=== PATIENT | male | born 1965 | race African-American/Black ===

== ENCOUNTER 2020-03-02 09:14 | Outpatient (CLI) | payer OTHER ==
[2020-03-02] VITALS (14 sets, daily range): BP systolic 126–147; BP diastolic 87–100; PULSE 82–101
[~2020-03-02] VITALS: Ht 182.9 cm; Wt 111.0 kg
[~2020-03-02 09:14] MED LIST: CRESTOR 10MG10 MG PO; FLOMAX 0.40.4 MG/CAP PO; GLUCOPHAGE1000 MG PO; NORVASC 10MG10 MG PO; PRINZIDE 25 MG-1 TAB PO; TOPROL XL 50MG50 MG PO; VITAMIN D 50,1.25 MG PO
--- NOTE | 2020-03-02 09:45 | NUR ---
Pt transported to ct per ambulation. Pt placed in prone position on ct table. Monitors applied to pt. O2 on at 2l/nc.
--- NOTE | 2020-03-02 09:55 | NUR ---
Dr Araiza into ct room and talking with pt.
--- NOTE | 2020-03-02 10:09 | NUR ---
Specimen obtained and placed in foramlin by Dr Araiza, specimen labeled.
--- NOTE | 2020-03-02 13:10 | NUR ---
Dr Araiza called, chest x-ray OK, pt may be discharged, Int d'cd intact. Pt up in room and dressed, waits for ride. Pt discharged at 1330 amb. to lobby/car
== END 2020-03-02 13:36 | disposition home or self-care (01) ==
LOC: COL.RAD 09:14
DX: R91.8 Other nonspecific abnormal finding of lung field (principal); M89.8X8 Other specified disorders of bone, other site
CPT/HCPCS: 32107

== ENCOUNTER 2020-09-12 17:47 | Emergency (ER) | payer OTHER ==
[~2020-09-12] VITALS: Ht 182.9 cm; Wt 115.9 kg
[2020-09-12 17:57] VITALS: BP 137/80; TEMP 97.7
[2020-09-12 18:49] LABS: BASO % 0.5 % (0.0-2.0); EOS % 12.2 % (0-4.0); GRAN # 3.5 (1.4-6.5); GRAN % 42.1 % (42.2-75.2); HEMOGLOBIN 11.3 g/dl (13.5-18.0); LYMPH # 2.6 (1.2-3.4); LYMPH % 31.9 % (20.0-51.0); MEAN CELL VOLUME 86 fl (80.0-100.0); MEAN CORPUSCULAR HEMOGLOBIN 28 pg (27.0-31.0); MEAN CORPUSCULAR HGB CONC 32 g/dl (33.0-37.0); MEAN PLATELET VOLUME 9.2 fl (7.4-10.4); MONO # 1.1 (0.1-0.6); MONO % 12.9 % (1.7-9.3); PLATELET COUNT 274 K/mm3 (130-400); RED BLOOD COUNT 4.11 M/mm3 (4.20-5.60); REDCELL DISTRIBUTION WIDTH-CV 12.6 % (11.5-14.5)
[2020-09-12 18:50] LABS: HEMATOCRIT 35.2 % (42.0-52.0)
[2020-09-12 19:00] LABS: ALBUMIN 4.7 gm/dL (3.5-5.0); BILIRUBIN,TOTAL 0.4 mg/dL (0.0-1.0); CALCIUM 9.5 mg/dL (8.4-10.2); CREATININE, serum 3.97 (0.66-1.25); POTASSIUM 4.4 mmol/L (3.4-5.0); TOTAL PROTEIN 8.6 gm/dL (6.4-8.2)
[2020-09-12 20:10] VITALS: PULSE 85
== END 2020-09-12 20:10 | disposition home or self-care (01) ==
LOC: COL.ER 17:47
PROVIDERS: Emergency Medicine
DX: R79.89 Other specified abnormal findings of blood chemistry (principal); I10 Essential (primary) hypertension; E11.9 Type 2 diabetes mellitus without complications; Z85.118 Personal history of other malignant neoplasm of bronchus and lung; Z79.84 Long term (current) use of oral hypoglycemic drugs
CPT/HCPCS: J7030